=== PATIENT | male | born 1950 | race Caucasian/White ===

== ENCOUNTER → 2017-04-18 07:48 | Outpatient (CLI) | payer BC, SELFPAY ==
--- NOTE | 2017-04-18 08:05 | RAD_ITS ---
STUDY: X-RAY - ESOPHAGUS (BARIUM SWALLOW) WITH FLUOROSCOPY REASON FOR EXAM: Male, 66 years old. One-year history of dysphagia and arcs. TECHNIQUE: 9 view(s) of the esophagus were obtained following swallowing of barium. FLUOROSCOPY TIME (if supplied): (0:30) minutes/seconds COMPARISON: None. FINDINGS: There is no demonstrated esophageal foreign body. There is no demonstrated stricture or mucosal abnormality. There is a small hiatal hernia of the fundus of the stomach. There is evidence of gastroesophageal reflux. The patient ingested a 12 mm tablet of barium without any difficulty. Normal visualized aortic arch and descending thoracic aorta. Normal visualized pulmonary parenchyma. Normal visualized osseous structures of the thorax. RAD/Esophagus Only IMPRESSION: Small sliding hiatal hernia with gastroesophageal reflux. Electronically Signed: Jerry Dey MD at 8:48 EST Tel [phone], Service support ,
== END ==
PROVIDERS: Visit Provider Nurse Practitioner Adult Health
DX: R13.19 Other dysphagia (principal)
CPT/HCPCS: 74220

== ENCOUNTER → 2019-07-06 09:29 | Outpatient (CLI) | payer MEDICARE, SELFPAY ==
[2019-07-01 14:30] VITALS: BMI 25.5
[2019-07-06 10:22] LABS: Absolute Neutrophil Count 2.2 X10^3/uL (2.0-7.7); Basophil# 0.03 X10^3/uL; Basophil% 0.8 % (0-1); Eosinophil# 0.25 X10^3/uL; Eosinophils% 6.3 % (0-5); Hematocrit 38.9 % (40-54); Hemoglobin 12.8 g/dL (13.0-16.5); Lymphocyte % 25.4 % (19-41); Mean Corp Hgb Conc 32.9 g/dL (32-36); Mean Corpuscular Hgb 33.1 pg (27.0-32.0); Mean Corpuscular Volume 100.5 fL (80-94); Mean Platelet Vol. 11.4 fl (6.2-12.0); Monocyte# 0.48 X10^3/uL; Monocyte% 12.2 % (0-10); NRBC Flagged by Analyzer 0 % (0-5); Neutrophil # 2.17 X10^3/uL (2.7-7.7); Platelet Count 201 K/mm3 (150-450); RBC Distribution Width CV 11.9 % (11.6-14.6); Red Blood Count 3.87 M/mm3 (4.6-6.2); White Blood Count 3.9 K/mm3 (4.4-11.0)
[2019-07-06 10:56] LABS: AST(SGOT) 24 U/L (15-37); Alanine Aminotransfer ALT/SGPT 42 U/L (16-61); Albumin, Serum 3.4 g/dL (3.2-5.0); Alkaline Phosphatase 88 U/L (45-117); Anion Gap 6 (5-15); BUN 11 mg/dL (7-18); BUN/Creat Ratio 10.7 RATIO (10-20); Bilirubin, Direct 0.19 mg/dL (0.00-0.30); Chloride 108 mmol/L (98-107); Cholesterol 124 mg/dL (200); Creatinine, Serum 1.03 mg/dL (0.70-1.30); EST Glomerular Filtration Rate 77 mL/min (>60); Est Glom Filt Rate - Afr Amer 93 mL/min (>60); Globulin 3.3 g/dL (2.2-4.2); Glucose 103 mg/dL (74-106); High Density Lipoprotein 48 mg/dL; Potassium 4.1 mmol/L (3.5-5.1); Protein, Total 6.7 g/dL (6.4-8.2); Sodium Level 143 mmol/L (136-145); T4 Total, Thyroxin 5.5 ug/dL (4.5-12.1); Thyroid Stim Hormone (TSH) 1.94 uIU/mL (0.358-3.74); Triglycerides 81 mg/dL; Very Low Density Lipoprotein 16 mg/dL (5-40)
== END ==
PROVIDERS: PCP Family Medicine; Referring Provider Internal Medicine Cardiovascular Disease; Visit Provider Internal Medicine Cardiovascular Disease
DX: E78.00 Pure hypercholesterolemia, unspecified (principal); I25.10 Atherosclerotic heart disease of native coronary artery without angina pectoris; Z95.5 Presence of coronary angioplasty implant and graft; E78.2 Mixed hyperlipidemia; I10 Essential (primary) hypertension; R53.83 Other fatigue; R07.2 Precordial pain
CPT/HCPCS: 36415; 80053; 80061; 82248; 83735; 84436; 84443; 85025

== ENCOUNTER → 2019-08-04 | Outpatient (CLI) | payer MEDICARE, SELFPAY ==
[2019-07-01 14:30] VITALS: BMI 25.5
--- NOTE | 2019-08-04 06:46 | ECHOD_ITS ---
Reason For Study: CAD/ASHD Procedure This was a 2D Doppler, Color Flow transthoracic echocardiogram. Exam performed in department. Left Ventricle Normal LV size. Left ventricular systolic function is normal. The estimated ejection fraction is 65 %. No evidence for diastolic dysfunction. No regional wall motion abnormalities noted. Right Ventricle Normal RV size. Normal systolic function. Atria Normal left atrium. Normal right atrium. No doppler evidence for ASD. Mitral Valve There is no mitral annular calcification. Normal mitral valve. Mild (1+) mitral valve insufficiency. Tricuspid Valve Normal tricuspid valve. Trivial tricuspid valve insufficiency. Right ventricular systolic pressure estimated to be 29 mmHg. Aortic Valve Trisinus/trileaflet aortic valve. Normal aortic valve. Pulmonic Valve The pulmonic valve is not well visualized. Great Vessels Normal sized aortic root. Pericardium/Pleural No pericardial effusion. MMode/2D Measurements & Calculations LVIDd: 4.7 cm IVSd: 1.0 cm Ao root diam: 3.7 cm LVIDs: 2.6 cm LVPWd: 1.0 cm LA dimension: 3.6 cm RVDd: 3.1 cm FS: 45.3 % LAV(MOD-bp): 41.8 ml LA A4 area: 13.6 cm2 RA A4 area: 15.1 cm2 LAV(MOD-bp) Indexed: 21.0 ml/m2 LAV(MOD-sp2): 47.1 ml LAV(MOD-sp4): 32.7 ml Time Measurements MV dec time: 0.27 sec Doppler Measurements & Calculations MV E max lokesh: 94.9 cm/sec Lat Peak E' Lokesh: 9.3 cm/sec Med Peak E' Lokesh: 9.5 cm/sec MV A max lokesh: 79.8 cm/sec E/E' lat: 10.2 E/E' med: 10.0 MV E/A: 1.2 MV V2 max: 95.3 cm/sec MV P1/2t max lokesh: 94.4 cm/sec Ao V2 max: 101.2 cm/sec MV max P.6 mmHg MV P1/2t: 85.4 msec Ao max P.1 mmHg MV V2 mean: 56.2 cm/sec MV dec slope: 323.6 cm/sec2 MV mean P.5 mmHg MVA(P1/2t): 2.6 cm2 MV V2 VTI: 30.5 cm LV V1 max: 86.8 cm/sec PA V2 max: 88.6 cm/sec TR max lokesh: 253.6 cm/sec LV V1 max P.0 mmHg TR max P.7 mmHg Interpretation Summary Left ventricular systolic function is normal. The estimated ejection fraction is 65 %. Mild (1+) mitral valve insufficiency. Trivial tricuspid valve insufficiency. Right ventricular systolic pressure estimated to be 29 mmHg. No evidence for diastolic dysfunction. Ordering Physician: Mark Jensen Referring Physician: CHARLENE SAMUEL Performed By: Beny Casarez RCS
--- NOTE | 2019-08-04 08:54 | STRESSREP ---
Stress Test Report Date: 08-04-2019 Procedure: Pharmacologic stress nuclear imaging study Indications: Chest pain; CAD; PCI Consent: Per the patient Procedure: The patient underwent pharmacologic (Regadenoson) evaluation with a peak heart rate of 106 beats per minute (68 %predicted maximal heart rate) and a peak blood pressure of 138/80 mmHg. The baseline ECG demonstrated sinus rhythm. The peak pharmacologic ECG demonstrated no obvious ECG changes. There were no cardiac dysrhythmias pretest, during pharmacologic infusion, or recovery. There was no complaint of chest discomfort during pharmacologic infusion or recovery. The examination was discontinued secondary to completion of protocol. Impression: 1. Pharmacologic (Regadenoson) evaluation 2. Peak pharmacologic ECG with no obvious ECG changes. 3. There were no cardiac dysrhythmias pretest, during pharmacologic infusion, or recovery. 4. Nuclear images pending Myocardial perfusion imaging study: Technique: The patient was injected with 12.0 millicuries of technetium 99m Cardiolite and subsequently rest SPECT Cardiolite nuclear imaging was obtained in the horizontal long, vertical long, and short axis views. The patient underwent pharmacologic (Regadenoson) evaluation with a peak heart rate of 106 beats per minute (68 % percent predicted maximal heart rate) and a peak blood pressure of 138/80 mmHg. The patient was injected with 35.0 millicuries of technetium 99m Cardiolite and subsequently stress SPECT Cardiolite nuclear imaging was obtained in the horizontal long, vertical long, and short axis views. A gated Cardiolite study at peak stress was obtained. Interpretation: Rest and stress SPECT Cardiolite nuclear imaging status post realignment, normalization, and attenuation correction demonstrate relative uniform tracer uptake and myocardial perfusion appearing within normal limits. There is end systolic thickening and brightening. The gated Cardiolite study demonstrates myocardial thickening and inward wall motion. The reported LVEF is 80 %. Impression: 1. Rest and stress SPECT Cardiolite nuclear imaging demonstrate relative uniform tracer uptake and myocardial perfusion appearing within normal limits. 2. The gated Cardiolite study reports an LVEF of 80 %. This note was generated with [employer] software. It may contain incorrect words, spelling, and punctuation that were not noted in checking the note before signing.
== END | disposition home or self-care (01) ==
PROVIDERS: PCP Family Medicine; Referring Provider Internal Medicine Cardiovascular Disease; Visit Provider Internal Medicine Cardiovascular Disease
DX: I25.10 Atherosclerotic heart disease of native coronary artery without angina pectoris (principal); R07.9 Chest pain, unspecified; E78.2 Mixed hyperlipidemia; I10 Essential (primary) hypertension; R53.83 Other fatigue; Z95.5 Presence of coronary angioplasty implant and graft
CPT/HCPCS: 78452; 93017; 93306; A9500; A4216; J2785

== ENCOUNTER → 2020-09-19 07:14 | Outpatient (CLI) | payer MEDICARE, SELFPAY ==
[2020-08-28 09:07] VITALS: BMI 25.5
--- NOTE | 2020-09-19 07:15 | MRI_ITS ---
EXAM DESCRIPTION: MRI of the lumbar spine, with and without IV contrast CLINICAL HISTORY: 69 years Male, low back pain, hx prior surgery 08/2019, bilat leg pain COMPARISON: Lumbar spine x-rays obtained on 08/28/2020 TECHNIQUE: MRI lumbar spine was performed utilizing T1 and fast spin-echo T2-weighted and STIR weighted sagittal images followed by angled axial T1 and T2-weighted images obtained from above the L1-L2 intervertebral disc space level down to the L5-S1 level. Sagittal and axial postcontrast T1-weighted images of the lumbar spine were obtained through similar levels. FINDINGS: L1-L2: The intervertebral disc and neural foramina appear to be normal. L2-L3:The intervertebral disc and neural foramina appear to be normal. L3-L4: The intervertebral disc and neural foramina appear to be normal. L4-L5: A mild diffusely bulging disc is noted at this level with no evidence of disc herniation or spinal stenosis.. There is minimal by foraminal central foraminal stenosis is identified which is not compressing the L4 nerve roots as they exit the L4-5 neural foramina bilaterally. L5-S1: The patient had a laminectomy at this level and there is a diffusely bulging disc seen at this level. No central spinal stenosis is identified. The diffusely bulging disc is causing biforaminal subforaminal stenosis with moderate narrowing of the right L5-S1 neural foramina and possible effacement of the exiting right L5 nerve root. On the left side, there is some mild narrowing of the left neural foramina in part caused by mild subforaminal stenosis but this does not appear to be compressing the exiting L5 nerve root. Conus medullaris and lumbar nerve roots: The conus medullaris ends at the T12 level and appears to be normal. The lumbar nerve roots appear to be normal. Lumbar spine: The lumbar spine appears to be in good position and alignment. The bone marrow of the lumbar vertebral bodies appears to be normal. No vertebral body compression fractures are seen. There is facet arthropathy seen at the L4-5 and to a lesser extent the L5-S1 levels. As mentioned previously the patient''s had a lumbar laminectomy female 5 level. IMPRESSION: 1. 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 2. 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 3. A diffusely bulging disc is noted the L5-S1 intervertebral disc space level. There is bifrontal subforaminal stenosis noted more pronounced on the right possibly causing some effacement of the exiting right L5 nerve root. MRI/Spine Lumbar W/WO Contrast IMPRESSION: Normal enhanced and unenhanced MR examination of the lumbar spine. Electronically Signed: Titi Guo DO at 9:19 EDT Tel , Service support ,
[2020-09-19 07:41] LABS: CREATININE FINGERSTICK 0.9 mg/dL (0.70-1.30); EGFR FINGERSTICK > 60.0000 mL/min (>60)
== END ==
PROVIDERS: PCP Family Medicine; Referring Provider Orthopaedic Surgery; Visit Provider Orthopaedic Surgery
DX: M54.5 Low back pain (principal)
CPT/HCPCS: 72158; A9575

== ENCOUNTER → 2020-10-16 09:03 | Outpatient (CLI) | payer MEDICARE, SELFPAY ==
[2020-10-16 10:24] LABS: Erythrocyte Sedimentation Rate 4 mm/hr (0-20)
[2020-10-16 10:26] LABS: Absolute Lymphocyte Count 1.09 X10^3/uL (0.83-4.51); Absolute Neutrophil Count 2.7 X10^3/uL (2.0-7.7); Basophil# 0.03 X10^3/uL; Basophil% 0.7 % (0-1); Eosinophil# 0.15 X10^3/uL; Eosinophils% 3.4 % (0-5); Hematocrit 41.9 % (40-54); Hemoglobin 13.9 g/dL (13.0-16.5); Lymphocyte # 1.09 X10^3/ul (0.83-4.51); Lymphocyte % 24.9 % (19-41); Mean Corp Hgb Conc 33.2 g/dL (32-36); Mean Corpuscular Hgb 33.3 pg (27.0-32.0); Mean Corpuscular Volume 100.5 fL (80-94); Mean Platelet Vol. 11.3 fl (6.2-12.0); Monocyte# 0.43 X10^3/uL; Monocyte% 9.8 % (0-10); NRBC Flagged by Analyzer 0 % (0-5); Neutrophil # 2.66 X10^3/uL (2.7-7.7); Platelet Count 200 K/mm3 (150-450); RBC Distribution Width CV 12.3 % (11.6-14.6); RBC Distribution Width SD 45.6 fl (35.1-43.9); Red Blood Count 4.17 M/mm3 (4.6-6.2); White Blood Count 4.4 K/mm3 (4.4-11.0)
[2020-10-16 11:08] LABS: AST(SGOT) 22 U/L (15-37); Alanine Aminotransfer ALT/SGPT 36 U/L (16-61); Albumin, Serum 3.7 g/dL (3.2-5.0); Alkaline Phosphatase 87 U/L (45-117); Anion Gap 2 (5-15); BUN 12 mg/dL (7-18); BUN/Creat Ratio 11.5 RATIO (10-20); Bilirubin, Direct 0.18 mg/dL (0.00-0.30); CRP < 2.90 mg/L (0.0-3.0); Calcium,Total 9.1 mg/dL (8.5-10.1); Chloride 109 mmol/L (98-107); Cholesterol 152 mg/dL (200); Creatinine, Serum 1.04 mg/dL (0.70-1.30); EST Glomerular Filtration Rate 76 mL/min (>60); Est Glom Filt Rate - Afr Amer 91 mL/min (>60); Globulin 3.7 g/dL (2.2-4.2); Glucose 102 mg/dL (74-106); High Density Lipoprotein 62 mg/dL; Potassium 4.5 mmol/L (3.5-5.1); Protein, Total 7.4 g/dL (6.4-8.2); Rheumatoid Factor < 10.0 IU/mL (<15); Sodium Level 140 mmol/L (136-145); Triglycerides 88 mg/dL; Very Low Density Lipoprotein 18 mg/dL (5-40)
[2020-10-16 11:30] LABS: Hepatitis B Surface Antibody Non-Reactive; Hepatitis B Surface Antigen Non-Reactive (Nonreactive); Hepatitis C Antibody Non-Reactive (Nonreactive)
[2020-10-17 17:00] LABS: ANTINUCLEAR ANTIBODIES DIRECT Negative (Negative)
[2020-10-18 13:15] LABS: CCP IgG Antibodies 7 units (0-19)
== END ==
PROVIDERS: Internal Medicine Cardiovascular Disease; PCP Family Medicine; Referring Provider Internal Medicine Rheumatology; Visit Provider Internal Medicine Rheumatology
DX: E78.00 Pure hypercholesterolemia, unspecified (principal); M48.061 Spinal stenosis, lumbar region without neurogenic claudication; I10 Essential (primary) hypertension; E78.5 Hyperlipidemia, unspecified; I25.10 Atherosclerotic heart disease of native coronary artery without angina pectoris
CPT/HCPCS: 36415; 80053; 80061; 82248; 85025; 85652; 86038; 86140; 86200; 86431; 86706; 86803; 87340

== ENCOUNTER → 2020-11-07 09:52 | Outpatient (CLI) | payer MEDICARE, SELFPAY ==
--- NOTE | 2020-11-07 09:56 | ART_ITS ---
Reason For Study: Claudication Procedure A bilateral lower extremity continuous wave Doppler with analog waveform analysis,segmental pressures,and ankle brachial indexes without exercise. Left Segmental Pressures Left brachial= 125mmHg. Left posterior tibial artery = 150mmHg. Left dorsalis pedis artery = 147mmHg. Left digit = 112 mmHg. The left dorsalis pedis waveforms are triphasic. The left posterior tibial artery waveforms are triphasic. Right Segmental Pressures Right brachial= 121mmHg. Right posterior tibial artery = 163mmHg. Right dorsalis pedis artery = 161mmHg. Right digit = 101 mmHg. The right dorsalis pedis waveforms are triphasic. The right posterior tibial artery waveforms are triphasic. Indices The right ankle brachial index by the dorsalis pedis is 1.29. The right ankle brachial index by the posterior tibial artery is 1.30. The right digital-brachial index is 0.81. The left ankle brachial index by the dorsalis pedis is 1.18. The left ankle brachial index by the posterior tibial artery is 1.20. The left digital-brachial index is 0.90. VL/Lower Ext Art Exam w/o Exercis Interpretation Summary Normal bilateral lower extremity ankle-brachial indices at rest. Normal bilateral posterior tibial and dorsalis pedis triphasic Doppler waveform s Normal bilateral digital brachial indices Ordering Physician: Lo Baltazar Referring Physician: Michael Hurtado Performed By: Lana Barahona RVT
== END ==
PROVIDERS: PCP Family Medicine; Referring Provider Physician Assistant Medical; Visit Provider Physician Assistant Medical
DX: I25.10 Atherosclerotic heart disease of native coronary artery without angina pectoris (principal); I73.9 Peripheral vascular disease, unspecified; R20.2 Paresthesia of skin
CPT/HCPCS: 93923

== ENCOUNTER → 2021-06-20 | Outpatient (CLI) | payer MEDICARE, SELFPAY ==
[2021-06-20 10:34] LABS: Erythrocyte Sedimentation Rate 8 mm/hr (0-20)
[2021-06-20 10:35] LABS: Absolute Lymphocyte Count 1.26 X10^3/uL (0.83-4.51); Absolute Neutrophil Count 3.8 X10^3/uL (2.0-7.7); Basophil# 0.02 X10^3/uL; Basophil% 0.3 % (0-1); Eosinophil# 0.23 X10^3/uL; Eosinophils% 3.8 % (0-5); Hematocrit 40.4 % (40-54); Hemoglobin 13.4 g/dL (13.0-16.5); Lymphocyte # 1.26 X10^3/ul (0.83-4.51); Lymphocyte % 20.9 % (19-41); Mean Corp Hgb Conc 33.2 g/dL (32-36); Mean Corpuscular Hgb 33.8 pg (27.0-32.0); Mean Platelet Vol. 11.6 fl (6.2-12.0); Monocyte# 0.64 X10^3/uL; Monocyte% 10.6 % (0-10); NRBC Flagged by Analyzer 0 % (0-5); Neutrophil # 3.84 X10^3/uL (2.7-7.7); Neutrophil % 63.9 % (47-70); Platelet Count 226 K/mm3 (150-450); RBC Distribution Width CV 12.2 % (11.6-14.6); RBC Distribution Width SD 46.1 fl (35.1-43.9); Red Blood Count 3.96 M/mm3 (4.6-6.2)
[2021-06-20 10:46] LABS: AST(SGOT) 23 U/L (15-37); Alanine Aminotransfer ALT/SGPT 39 U/L (16-61); Albumin, Serum 3.5 g/dL (3.2-5.0); Alkaline Phosphatase 83 U/L (45-117); Anion Gap 3 (5-15); BUN 14 mg/dL (7-18); CRP < 2.90 mg/L (0.0-3.0); Chloride 107 mmol/L (98-107); Creatinine, Serum 1.17 mg/dL (0.70-1.30); EST Glomerular Filtration Rate 66 mL/min (>60); Est Glom Filt Rate - Afr Amer 80 mL/min (>60); Globulin 3.6 g/dL (2.2-4.2); Glucose 106 mg/dL (74-106); Potassium 4.2 mmol/L (3.5-5.1); Protein, Total 7.1 g/dL (6.4-8.2); Sodium Level 140 mmol/L (136-145)
== END | disposition home or self-care (01) ==
LOC: LAB 09:35
PROVIDERS: PCP Family Medicine; Referring Provider Internal Medicine Rheumatology; Visit Provider Internal Medicine Rheumatology
DX: M48.061 Spinal stenosis, lumbar region without neurogenic claudication (principal); I10 Essential (primary) hypertension; E78.5 Hyperlipidemia, unspecified; I25.10 Atherosclerotic heart disease of native coronary artery without angina pectoris
CPT/HCPCS: 36415; 80053; 85025; 85652; 86140

== ENCOUNTER → 2021-11-12 | Outpatient (CLI) | payer MEDICARE, SELFPAY ==
[2021-11-12 13:41] LABS: AST(SGOT) 23 U/L (15-37); Alanine Aminotransfer ALT/SGPT 39 U/L (16-61); Albumin, Serum 3.5 g/dL (3.2-5.0); Alkaline Phosphatase 92 U/L (45-117); Bilirubin, Direct 0.13 mg/dL (0.00-0.30); Cholesterol 131 mg/dL (200); Globulin 3.5 g/dL (2.2-4.2); High Density Lipoprotein 57 mg/dL; Triglycerides 82 mg/dL; Very Low Density Lipoprotein 16 mg/dL (5-40)
== END | disposition home or self-care (01) ==
PROVIDERS: PCP Family Medicine; Referring Provider Nurse Practitioner Family; Visit Provider Nurse Practitioner Family
DX: I25.10 Atherosclerotic heart disease of native coronary artery without angina pectoris (principal); E78.2 Mixed hyperlipidemia
CPT/HCPCS: 36415; 80061; 80076

== ENCOUNTER → 2023-01-06 | Outpatient (CLI) | payer MEDICARE, SELFPAY ==
[2023-01-06 11:24] LABS: AST(SGOT) 21 U/L (15-37); Alanine Aminotransfer ALT/SGPT 32 U/L (16-61); Albumin, Serum 3.4 g/dL (3.2-5.0); Alkaline Phosphatase 89 U/L (45-117); Bilirubin, Direct 0.17 mg/dL (0.00-0.30); Cholesterol 135 mg/dL (200); Globulin 3.6 g/dL (2.2-4.2); High Density Lipoprotein 59 mg/dL; Triglycerides 107 mg/dL; Very Low Density Lipoprotein 21 mg/dL (5-40)
== END | disposition home or self-care (01) ==
LOC: LAB 10:02
PROVIDERS: Nurse Practitioner Family; PCP Family Medicine; Referring Provider Physician Assistant Medical; Visit Provider Physician Assistant Medical
DX: E78.2 Mixed hyperlipidemia (principal)
CPT/HCPCS: 36415; 80061; 80076